=== PATIENT | female | born 1975 | race African-American/Black ===

== ENCOUNTER → 2016-09-11 | Outpatient (CLI) | payer OTHER ==
--- NOTE | 2016-09-11 12:43 | RAD ---
EXAM: Chest 2 views. HISTORY: Left chest pain. COMPARISON: None. FINDINGS: Frontal and lateral views of the chest are obtained. There are no confluent infiltrates. There is no pneumothorax or pleural effusion. The heart is not enlarged. There are postsurgical changes in the right upper quadrant and the left anterior chest wall. IMPRESSION: 1. No confluent infiltrates.
== END | disposition home or self-care (01) ==
LOC: RAD 10:02
PROVIDERS: ATTEND Surgery
DX: R06.02 Shortness of breath (principal); R07.9 Chest pain, unspecified; M77.11 Lateral epicondylitis, right elbow
CPT/HCPCS: 71020